=== PATIENT | male | born 1945 | race Caucasian/White ===

== ENCOUNTER 2017-11-19 10:42 | Emergency (ER) | payer MEDICARE ==
[~2017-11-19] VITALS: Ht 177.8 cm; Wt 93.0 kg
[2017-11-19] MEDS ORDERED: HURRICAINE EXT TUBE (BENZOCAINE) ONE (10:51)
[2017-11-19] MEDS ORDERED: LIDOCAINE/EPI 2% 1:100,00 (XYLOCAINE) 20 ML VIAL ONE (10:52)
[2017-11-19] MEDS ORDERED: ATOR80TA76 (10:59)
[2017-11-19] MEDS ORDERED: BISO5TAB (10:59)
[2017-11-19 11:13] VITALS: BP 155/92
[2017-11-20] MEDS ORDERED: D5 1/2 NS W/KCL 20 MEQ/L 1,000 ML IV ONE (00:55)
== END 2017-11-19 11:19 | disposition home or self-care (01) ==
LOC: ER 10:44
DX: R04.0 Epistaxis (principal); E78.00 Pure hypercholesterolemia, unspecified; I10 Essential (primary) hypertension
CPT/HCPCS: 99284

== ENCOUNTER 2017-11-19 21:26 | Day surgery (SDC) | payer MEDICARE ==
[~2017-11-19] VITALS: Ht 177.8 cm; Wt 87.3 kg
[~2017-11-19 21:26] MED LIST: ATOR80TA76; BISO5TAB
[2017-11-19] MEDS ORDERED: BSS 15 ML ONE (21:42)
[2017-11-19] MEDS ORDERED: PHENYLEPHRINE 0.5% NASAL SPR (NEO-SYNEPHRINE) REG ONE (21:42)
[2017-11-19] MEDS ORDERED: LIDOCAINE/EPI 1%-1:200,000 (XYLOCAINE) 10 ML VIAL ONE (21:42)
[2017-11-19] MEDS ORDERED: COCAINE HCL 4% 2 ML SYR ONE (21:42)
[2017-11-19] MEDS ORDERED: MUPIROCIN 2% OINT 22 GM (BACTROBAN) TUBE ONE (21:42)
[2017-11-19] MEDS ORDERED: SEVOFLURANE (ULTANE) 15 ML INHAL SOLN ONE (21:53)
[2017-11-19] MEDS ORDERED: SUCCINYLCHOLINE INJ 100 MG/5 ML SYR ONE (21:53)
[2017-11-19] MEDS ORDERED: ONDANSETRON 4 MG/2 ML (SDV) Z0FRAN ONE (21:53)
[2017-11-19] MEDS ORDERED: proPOfol 200 MG/20 ML (DIPRIVAN) VIAL IV ONE (21:53)
[2017-11-19] MEDS ORDERED: LIDOCAINE PF 2% 5 ML (XYLOCAINE) VIAL ONE (21:53)
[2017-11-19] MEDS ORDERED: fentaNYL INJECTION 100 MCG/2 ML AMP ONE (21:55)
[2017-11-19] MEDS ORDERED: morphine INJ 10 MG/ML 1ML (SYR OR VIAL) ONE (21:58)
--- NOTE | 2017-11-19 22:00 | Progress Note-Pre Operative ---
Pre-Operative Progress Note H&P Reviewed The H&P was reviewed, patient examined and no changes noted. Date Seen by Provider: Nov 19, 2017 Time Seen by Provider: :45 Date H&P Reviewed: Nov 19, 2017 Time H&P Reviewed: :45 Pre-Operative Diagnosis: Recurrent Right Epistaxis ISADORA DIAZ MD Nov 19, 2017 10:00 pm
--- NOTE | 2017-11-19 22:05 | Progress Note-Standard ---
Standard Progress Note Progress Notes/Assess & Plan Date Seen by a Provider: Nov 19, 2017 Time Seen by a Provider: 21:45 Progress/Assessment & Plan [facility] History and Physical CC: Recurrent Right Anterior/Posterior Epistaxis HPI: Patient presented back to the ER with recurrent bleeding anteriorly and posteriorly fro mteh right side. He previously was in the ER this am and the right anteiror nose cauterized. It was also packed Had onset of bleeding around 730 this evening and it has been persistent. Off aspirin for one day no other blood thineers-blood pressure running high all-nkda Meds-see chart Exam Nose-blood soaked pack on the right side with bright red blood OC-blood in post pharynx Neck-negative IMP 1. Recurrent Right Anterior/Posterior Epistaxis Rec: 1. Patient has had recurrent bleeding. This is the t hird time seen fo rthe bleeding and this is posterior to the pack and where cauterized previously. Will need EUA in the OR with cauterization and packing will keep tonight. Check CBC. Can't go home until bleeding is controlled. Patient on Keflex-will go to the OR when crew is available and room available Final Diagnosis Right Anterior/Posterior Epistaxis ISADORA DIAZ MD Nov 19, 2017 10:05 pm
[2017-11-19 22:08] LABS: BASOPHILS % (AUTO) 0 % (0-10); EOSINOPHILS # (AUTO) 0.1 10^3/uL (0.0-0.3); EOSINOPHILS % (AUTO) 1 % (0-10); HEMATOCRIT 40 % (40-54); HEMOGLOBIN 13.2 G/DL (13.3-17.7); LYMPHOCYTES # (AUTO) 2.5 X 10^3 (1.0-4.0); LYMPHOCYTES % (AUTO) 18 % (12-44); MEAN CORPUSCULAR HEMOGLOBIN 27 PG (25-34); MEAN CORPUSCULAR HGB CONC 33 G/DL (32-36); MEAN CORPUSCULAR VOLUME 82 FL (80-99); MEAN PLATELET VOLUME 9.4 FL (7.4-10.4); MONOCYTES # (AUTO) 1.1 X 10^3 (0.0-1.0); MONOCYTES % (AUTO) 8 % (0-12); NEUTROPHILS # (AUTO) 10.3 X 10^3 (1.8-7.8); NEUTROPHILS % (AUTO) 73 % (42-75); PLATELET COUNT 539 10^3/uL (130-400); RED BLOOD COUNT 4.91 10^6/uL (4.35-5.85); RED CELL DISTRIBUTION WIDTH 13.8 % (10.0-14.5)
[2017-11-19] MEDS ORDERED: LACTATED RINGERS 1,000 ML IV ONE (22:18)
[2017-11-19] MEDS ORDERED: DEXAMETHASONE 10 MG/ML (DECADRON) 1 ML VIAL ONE (22:18)
[2017-11-19] MEDS ORDERED: LACTATED RINGERS 1,000 ML IV PRN (22:24)
[2017-11-19] MEDS ORDERED: D5 1/2 NS W/KCL 20 MEQ/L 1,000 ML IV SCH (22:37)
--- NOTE | 2017-11-19 22:37 | Progress Note-Post Operative ---
Post-Operative Progess Note Surgeon (s)/Value Engineer (s) Surgeon ISADORA DIZA MD Value Engineer n/a Pre-Operative Diagnosis Recurrent Right Epistaxis Post-Operative Diagnosis same Post-Op Procedure Note Date of Procedure: Nov 19, 2017 Name of Procedure Performed: Endoscopic Repair of Right Epistaxis Description & Findings Description and Findings: n/a Anesthesia Type get Estimated Blood Loss minimal Packing none. Specimen(s) collected/removed none ISADORA DIAZ MD Nov 19, 2017 10:37 pm
[2017-11-19] MEDS ORDERED: PHENYLEPHRINE 0.5% NASAL SPR (NEO-SYNEPHRINE) REG PRN (22:45)
[2017-11-19] MEDS ORDERED: ACETAMINOPHEN 500 MG TAB (TYLENOL) PO PRN (22:45)
[2017-11-19] MEDS ORDERED: HYDROcodone/APAP 5 MG/325 MG (LORTAB) TAB PO PRN (22:45)
[2017-11-19] MEDS ORDERED: morphine INJ 10 MG/ML 1ML (SYR OR VIAL) IVP ONE (23:00)
[2017-11-19] MEDS ORDERED: MEPERIDINE (DEMEROL) INJ 50 MG/ML IVP ONE (23:00)
[2017-11-19] MEDS ORDERED: ONDANSETRON 4 MG/2 ML (SDV) Z0FRAN IVP PRN (23:00)
[2017-11-19 23:45] VITALS: BP 121/67
[2017-11-20 04:01] VITALS: BP 126/65
[2017-11-20 07:13] VITALS: BP 109/63
[2017-11-20] MEDS ORDERED: FLU QUADRIvalent (5+ YOA) 2018-2019 (AFLURIA) 0.5 ML IM ONE (07:15)
[2017-11-20 12:10] VITALS: BP 135/77
[2017-11-20 13:26] VITALS: BP 135/77
--- NOTE | 2017-11-20 13:47 | Anesthesia-General Post-Op ---
General Patient Condition Mental Status/LOC: Same as Preop Cardiovascular: Satisfactory Nausea/Vomiting: Absent Respiratory: Satisfactory Pain: Controlled Complications: Absent Post Op Complications Complications None Follow Up Care/Instructions Patient Instructions None needed. Anesthesia/Patient Condition Patient Condition Patient is doing well, no complaints, stable vital signs, no apparent adverse anesthesia problems. No complications reported per nursing. EMMANUEL VENCES CRNA Nov 20, 2017 13:47
== END 2017-11-20 13:20 | disposition home or self-care (01) ==
LOC: EDUNIT# 21:26 → ER 21:27 → SDC 22:02 → 4TH 23:45 → SDC 11-20 13:20
PROVIDERS: ATTEND Otolaryngology Otolaryngology/Facial Plastic Surgery
DX: R04.0 Epistaxis (principal); I25.10 Atherosclerotic heart disease of native coronary artery without angina pectoris; I10 Essential (primary) hypertension; Z79.82 Long term (current) use of aspirin
CPT/HCPCS: 36415; 85025

== ENCOUNTER 2017-12-17 10:40 | Day surgery (SDC) | payer MEDICARE ==
[~2017-12-17] VITALS: Ht 177.8 cm; Wt 93.0 kg
--- NOTE | 2017-12-17 11:08 | Progress Note-Standard ---
Standard Progress Note Progress Notes/Assess & Plan Date Seen by a Provider: Dec 17, 2017 Time Seen by a Provider: 10:45 Progress/Assessment & Plan [facility] CC: REcurrent Right Epistaxis HPI: Patient presetnedf or evaluation and treatment of a recurrent right epistaxis. He previously had a right sided nose bleed cauterized about one month ago. Did fine up until yesterday. Had a tinge of blood on monday. This am he awoke with bleeding anteriorly and posteriorly from the nose on the right side. It stopped but then started again about an hour later. That episode lasted for about an hour. It has now stopped again. He hadbeen trying to keep the nose moist with ayr saline gel. He has been working out in the cold weather as well. He has no other bleeding issues. He had two cups of ocffee around 7 this morning. He has had nothing since that time Exam: Nose-large clot fillign the nose on the right side. No active bleedign seen : posteriorly no clot was seen. Oral Cavity-clear with no new or old blood seen Neck negative IMP: Recurrent Right Posterior Epistaxis Rec: 1. The options of treatment were discussed. REcommendations for evalution in the OR with repeat cauterization or cauterization of a new site were discussed. Given the diatance he is from home probably will keep overnight for observation. Risksn and benefits were discussed. Alexis proce to the OR when OR crew is available. CBC and BMP ordered. Consent for Endoscopic Repair of Right Posterior Epistaxis obtained. Final Diagnosis Recurrent Right Posterior Epistaxis ISADORA DIAZ MD Dec 17, 2017 11:08 am
--- NOTE | 2017-12-17 11:09 | Progress Note-Pre Operative ---
Pre-Operative Progress Note H&P Reviewed The H&P was reviewed, patient examined and no changes noted. Date Seen by Provider: Dec 17, 2017 Time Seen by Provider: 11:00 Date H&P Reviewed: Dec 17, 2017 Time H&P Reviewed: 11:00 Pre-Operative Diagnosis: Recurrent Right Posterior Epistaxis ISADORA DIAZ MD Dec 17, 2017 11:09 am
[2017-12-17] MEDS ORDERED: COCAINE HCL 4% 2 ML SYR ONE (11:18)
[2017-12-17] MEDS ORDERED: LIDOCAINE/EPI 1%-1:200,000 (XYLOCAINE) 10 ML VIAL ONE (11:18)
[2017-12-17] MEDS ORDERED: BSS 15 ML ONE (11:18)
[2017-12-17] MEDS ORDERED: PHENYLEPHRINE 0.5% NASAL SPR (NEO-SYNEPHRINE) REG ONE (11:18)
[2017-12-17 11:22] LABS: BASOPHILS % (AUTO) 0 % (0-10); EOSINOPHILS % (AUTO) 0 % (0-10); HEMATOCRIT 43 % (40-54); HEMOGLOBIN 13.6 G/DL (13.3-17.7); LYMPHOCYTES # (AUTO) 1.8 X 10^3 (1.0-4.0); LYMPHOCYTES % (AUTO) 16 % (12-44); MEAN CORPUSCULAR HEMOGLOBIN 27 PG (25-34); MEAN CORPUSCULAR HGB CONC 32 G/DL (32-36); MEAN CORPUSCULAR VOLUME 83 FL (80-99); MEAN PLATELET VOLUME 10.3 FL (7.4-10.4); MONOCYTES # (AUTO) 0.7 X 10^3 (0.0-1.0); MONOCYTES % (AUTO) 6 % (0-12); NEUTROPHILS # (AUTO) 9.3 X 10^3 (1.8-7.8); NEUTROPHILS % (AUTO) 78 % (42-75); PLATELET COUNT 317 10^3/uL (130-400); RED BLOOD COUNT 5.13 10^6/uL (4.35-5.85); RED CELL DISTRIBUTION WIDTH 14.7 % (10.0-14.5); WHITE BLOOD COUNT 11.9 10^3/uL (4.3-11.0)
[2017-12-17] MEDS ORDERED: LACTATED RINGERS 1,000 ML IV PRN (11:32)
[2017-12-17 11:35] LABS: ALANINE AMINOTRANSFERASE 29 U/L (0-55); ALKALINE PHOSPHATASE 102 U/L (40-136); BILIRUBIN,TOTAL 0.6 MG/DL (0.1-1.0); BUN/CREATININE RATIO 13; CARBON DIOXIDE 22 MMOL/L (21-32); CHLORIDE 106 MMOL/L (98-107); GFR ESTIMATED > 60; GLUCOSE 119 MG/DL (70-105); POTASSIUM 4.1 MMOL/L (3.6-5.0); SODIUM 140 MMOL/L (135-145); TOTAL PROTEIN 7.8 GM/DL (6.4-8.2)
[2017-12-17] MEDS ORDERED: fentaNYL INJECTION 100 MCG/2 ML AMP ONE (11:36)
[2017-12-17] MEDS ORDERED: MUPIROCIN 2% OINT 22 GM (BACTROBAN) TUBE ONE (11:36)
[2017-12-17] MEDS ORDERED: MIDAZOLAM 2 MG/2 ML (VERSED) VIAL ONE (11:36)
[2017-12-17] MEDS ORDERED: morphine INJ 10 MG/ML 1ML (SYR OR VIAL) ONE (11:53)
[2017-12-17] MEDS ORDERED: D5 1/2 NS W/KCL 20 MEQ/L 1,000 ML IV SCH (12:26)
--- NOTE | 2017-12-17 12:26 | Progress Note-Post Operative ---
Post-Operative Progess Note Surgeon (s)/Material Man (s) Surgeon ISADORA DIAZ MD Material Man n/a Pre-Operative Diagnosis Recurrent Right Posterior Epistaxis Post-Operative Diagnosis same Post-Op Procedure Note Date of Procedure: Dec 17, 2017 Name of Procedure Performed: Endoscopic REpair of Right Posterior Recurrent Epistaxis Description & Findings Description and Findings: n/a Anesthesia Type get Estimated Blood Loss minimal Packing none. Specimen(s) collected/removed none ISADORA DIAZ MD Dec 17, 2017 12:26 pm
[2017-12-17] MEDS ORDERED: PHENYLEPHRINE 0.5% NASAL SPR (NEO-SYNEPHRINE) REG PRN (12:30)
[2017-12-17] MEDS ORDERED: HYDROcodone/APAP 5 MG/325 MG (LORTAB) TAB PO PRN (12:30)
[2017-12-17] MEDS ORDERED: ACETAMINOPHEN 325 MG TABLET PO PRN (12:30)
[2017-12-17] MEDS ORDERED: SUCCINYLCHOLINE INJ 100 MG/5 ML SYR ONE (12:31)
[2017-12-17] MEDS ORDERED: SEVOFLURANE (ULTANE) 15 ML INHAL SOLN ONE (12:31)
[2017-12-17] MEDS ORDERED: ONDANSETRON 4 MG/2 ML (SDV) Z0FRAN ONE (12:31)
[2017-12-17] MEDS ORDERED: DEXAMETHASONE 10 MG/ML (DECADRON) 1 ML VIAL ONE (12:31)
[2017-12-17] MEDS ORDERED: ONDANSETRON 4 MG/2 ML (SDV) Z0FRAN IVP PRN (12:45)
[2017-12-17] MEDS ORDERED: morphine INJ 10 MG/ML 1ML (SYR OR VIAL) IVP ONE (12:45)
[2017-12-17 14:18] VITALS: BP 109/61
[2017-12-17] MEDS ORDERED: FLU QUADRIvalent (5+ YOA) 2018-2019 (AFLURIA) 0.5 ML IM ONE (14:45)
[2017-12-17 15:20] VITALS: BP 102/59
[2017-12-17] MEDS ORDERED: CEPH-507 PO (16:58)
[2017-12-17] MEDS ORDERED: HYDR-3812 PO (17:00)
[2017-12-17 17:37] VITALS: BP 102/59
--- NOTE | 2017-12-18 08:26 | Anesthesia-General Post-Op ---
General Patient Condition Mental Status/LOC: Same as Preop Cardiovascular: Satisfactory Nausea/Vomiting: Absent Respiratory: Satisfactory Pain: Controlled Complications: Absent Post Op Complications Complications None Follow Up Care/Instructions Patient Instructions None needed. Anesthesia/Patient Condition Patient Condition Patient is doing well, no complaints, stable vital signs, no apparent adverse anesthesia problems. No complications reported per nursing. ONIEL CASILLAS CRNA Dec 18, 2017 08:26
== END 2017-12-17 17:15 | disposition home or self-care (01) ==
LOC: EDUNIT# 10:40 → ER 10:41 → SDC 10:55 → 4TH 14:03 → SDC 17:15
PROVIDERS: ATTEND Otolaryngology Otolaryngology/Facial Plastic Surgery
DX: R04.0 Epistaxis (principal); I10 Essential (primary) hypertension; E78.5 Hyperlipidemia, unspecified; Z95.5 Presence of coronary angioplasty implant and graft; Z87.891 Personal history of nicotine dependence; Z79.899 Other long term (current) drug therapy
CPT/HCPCS: 36415; 80053; 85025